=== PATIENT | male | born 1995 | race Caucasian/White ===

== ENCOUNTER 2017-07-10 16:53 | Observation (INO) | payer SELFPAY ==
[~2017-07-10 16:53] MED LIST: DIPRIVAN VIAL ONE; SUPRANE IN ONE; VERSED ONE; XYLOCAINE 2 % (PLAIN) ONE; ZOFRAN INJ 4 MG VIAL ONE
--- NOTE | 2017-07-10 17:17 | RAD ---
Examination: Left knee, two views History: Foreign body, broken needle Findings: There is a linear metallic fragment 1 cm in length in the soft tissues immediately anterior to the lateral tibial plateau. There is no evidence for fracture, bone infection or other abnormalit y. Impression: Metallic foreign body in the soft tissues. Reported By:
[2017-07-10] MEDS ORDERED: XYLOCAINE 1 % (PLAIN) ONE (17:23)
--- NOTE | 2017-07-10 18:16 | RAD ---
Examination: Left knee, two views History: Follow up foreign body Comparison reference earlier today Findings: The linear metallic foreign body is in similar position, considering slight differences in projection. No new abnormality or interval change demonstrated. Impression: No significant change. Persistent linear metallic foreign fragment in the soft tissues an terior to the knee. Reported By:
--- NOTE | 2017-07-10 18:20 | DR.GENAD ---
HPI - PCP Primary Care Physician: nfd - Complaint/Symptoms Chief Complaint Doctors Comments: Patient got a needle puncture wound in the left lateral patella. The needle was broken off. Needle went into the left knee when bending down on the floor. Chief Complaint:: pt was digging with a needle in his ingrown toe nail and left the needle in the floor. he forgot about it and kneeled down and the needle went in his left knee and broke off. - Source History Provided: Patient - Mode of Arrival Mode of Arrival: Ambulatory - Timing Onset of Chief Complaint: 07/10/17 PMH - PMH Past Medical History: No Past Surgical History: Yes Surgical History: Other - Family History History of Family Medical Conditions: No - Social History Does patient currently use any type of tobacco product: Yes Have you used tobacco products in the last 12 months: Yes Type of Tobacco Use: Cigarettes How many years tobacco product used: 4 Does any household member use tobacco: No Alcohol Use: None Do you use any recreational Drugs:: No Lives With: Family Lives Where: Home - infectious screening In the last 2 months have you had wt loss of >10#?: NO Have you had fever, night sweats or hemotysis?: No Have you traveled outside the country in the last 6 months?: No Isolation: Standard ROS - Review of Systems Eyes: No Symptoms Reported ENTM: No Symptoms Reported Respiratoy: No Symptoms Reported Cardiovascular: No Symptoms Reported Gastrointestinal/Abdominal: No Symptoms Reported Genitourinary: No Symptoms Reported Neurological: No Symptoms Reported Musculoskeletal: No Symptoms Reported, Knee (left knee with a piece of a needle imbeded) Integumentary: No Symptoms Reported Hematologic/Lymphatic: No Symptoms Reported Endocrine: No Symptoms Reported Psychiatric: No Symptoms Reported All Other Systems: Reviewed and Negative PE - Vital Signs Vitals: Temperature 98.9 F Pulse Rate 92 Respiratory Rate 16 Blood Pressure 124/84 O2 Sat by Pulse Oximetry 100 - General Limitations: No Limitations General Appearance: Alert, In No Apparent Distress - Head Head Exam: Normal Inspection, Atraumatic - Eyes Eye exam: Normal Appearance, PERRL, EOMI - ENT ENT Exam: Normal Exam External Ear Exam: Normal External Inspection TM/Canal Exam: Bilateral Normal Nose Exam: Normal Nose Exam Mouth Exam: Normal Inspection Throat Exam: Normal Inspection - Neck Neck Exam: Normal Inspection - Chest Chest Inspection: Normal Inspection - Respiratory Respiratory Exam: Normal Lung Sounds Bilat Respiratory Exam: Bilateral Clear to Auscultation - Cardiovascular Cardiovascular Exam: Regular Rate, Normal Rhythm - Abdominal Exam Abdominal Exam: Normal Inspection Abdominal Tenderness: negative: RUQ, RLQ, LUQ, LLQ, Epigastrium, Suprapubic, Diffuse, Mild, Moderate, Severe, Other - Extremities Extremities Exam: Normal Inspection, Other (left knee laterally with a metallic foreign body (needle)) - Back Back Exam: Normal Inspection, Full ROM - Neurologic Neurological Exam: Alert, Oriented X3, CN II-XII Intact - Psychiatric Psychiatric Exam: Normal Affect, Normal Mood - Skin Skin Exam: Warm, Dry, Intact Course - Reevaluation 1st: Unchanged - Consultation Called: 18:25 (Dr Luu agreed to admit) Consultation Comments: Dr Lira reviewed the X ray thought the foreign body was in the knee joint.Recommended to admit for surgery in the AM. 1820 - Education/Counseling Educated On: Treatment, Diagnosis, Needs for Follow Up ROR - XRAY XRAY Interpreted by: Radiologist (Knee: There is a linear metallic fragment 1cm in length in the soft tissue immediately anterior to the laterial platea. There is no evidence for fracture, bone infection or other abnormality.) - Diagnosis Discharge Problem: Acute foreign body of left knee Qualifiers: Encounter type: initial encounter Qualified Code(s): S80.252A - Superficial foreign body, left knee, initial encounter - Discharge Plan Condition: Stable - Follow ups/Referrals Follow ups/Referrals: [facility],None [Primary Care Provider] - 3 days - Instructions
[2017-07-10] MEDS ORDERED: NS 1000 ML 1,000 ML IV SCH (19:00)
[2017-07-10] MEDS ORDERED: VANCOMYCIN 1 GM PREMIX (ADDVANTAGE) 250 ML IV ONE (19:17)
[2017-07-10] MEDS ORDERED: NS 250 ML IV 250 ML IV ONE (19:21)
[2017-07-10] MEDS: VANCOMYCIN HCL 1 GM VIAL 1 GM in D5W 250 ML IV 250 ML IV SCH ×2 (19:32→22:36)
[2017-07-10 22:29] VITALS: BMI 18.9
[2017-07-10 22:54] LABS: BILIRUBIN,URINE NEGATIVE (NEGATIVE); BLOOD/HEMOGLOBIN,URINE NEGATIVE (NEGATIVE); GLUCOSE, URINE NEGATIVE (NEGATIVE); KETONES,URINE NEGATIVE (NEGATIVE); LEUKOCYTE ESTERASE ,URINE NEGATIVE (NEGATIVE); NITRITES,URINE NEGATIVE (NEGATIVE); PROTEIN,URINE 1+ (NEGATIVE); UROBILINOGEN,URINE NORMAL (NORMAL)
[2017-07-10 23:03] LABS: APPEARANCE,URINE SLIGHTLY HAZY (CLEAR); COLOR,URINE YELLOW (YELLOW)
[2017-07-10 23:04] LABS: AMORPHOUS SEDIMENT,UR 1+ /HPF (NEGATIVE); BACTERIA,URINE TRACE /HPF (NEGATIVE); RBC,URINE 0-2 /HPF (NONE SEEN); SQUAMOUS EPITHELIAL CELL,UR FEW /HPF (NEGATIVE)
[2017-07-11] MEDS ORDERED: MORPHINE SULFATE INJ 2 MG INJ IVP PRN (03:31)
[2017-07-11 06:02] LABS: BASOPHILS # (AUTO) 0.1 X10^3/uL (0.0-0.1); BASOPHILS % (AUTO) 0.9 % (0.2-1.0); EOSINOPHILS # (AUTO) 0.4 x10^3/uL (0.0-0.2); EOSINOPHILS % (AUTO) 5.8 % (0.9-2.9); HEMATOCRIT 40.3 % (42.0-54.0); HEMOGLOBIN 14.1 g/dL (13.5-18.0); LYMPHOCYTES # (AUTO) 2.3 X10^3/uL (1.3-2.9); LYMPHOCYTES % (AUTO) 32.7 % (21.0-51.0); MEAN CORPUSCULAR HEMOGLOBIN 31.5 pg (27.0-34.0); MEAN CORPUSCULAR HGB CONC 35.1 g/dL (33.0-35.0); MEAN CORPUSCULAR VOLUME 89.7 fL (80.0-100.0); MEAN PLATELET VOLUME 9.6 fL (7.4-11.0); MONOCYTES # (AUTO) 0.7 x10^3/uL (0.3-0.8); MONOCYTES % (AUTO) 9.9 % (0.0-13.0); NEUTROPHILS # (AUTO) 3.6 x10^3/uL (2.2-4.8); NEUTROPHILS % (AUTO) 50.7 % (42.0-75.0); PLATELET COUNT 219 X10^3/uL (150.0-450.0); RED BLOOD COUNT 4.49 X10^6/uL (4.7-6.0); RED CELL DISTRIBUTION WIDTH 12.9 % (11.6-16.5); WHITE BLOOD COUNT 7.1 X10^3/uL (3.6-10.0)
[2017-07-11 06:09] LABS: ALANINE AMINOTRANSFERASE 25 Units/L (12-78); ALBUMIN 3.3 g/dL (3.4-5.0); ALKALINE PHOSPHATASE 48 Units/L (46-116); ASPARTATE AMINO TRANSFERASE 15 Units/L (15-37); BLOOD UREA NITROGEN 15 mg/dL (7-18); CALCIUM 8.2 mg/dL (8.5-10.1); CARBON DIOXIDE 29.1 mmol/L (21-32); CHLORIDE 105 mmol/L (98-107); COR CA(FOR HYPOALB) 8.8 mg/dL (8.5-10.1); SODIUM 142 mmol/L (136-145); TOTAL PROTEIN 6.5 g/dL (6.4-8.2); eGFR BLACK RACES > 60 (>60); eGFR NON BLACK RACES > 60 (>60)
--- NOTE | 2017-07-11 06:39 | RAD ---
HISTORY: Preop foreign body removal Study: Single-view chest Comparison: 10/25/2012. Findings: Trachea is midline. The heart size is normal. Lungs and pleural spaces are clear. Osseous structures are intact. IMPRESSION: Normal chest. Reported By:
[2017-07-11] MEDS ORDERED: LR 1000 ML IV 1,000 ML IV ONE (07:26)
[2017-07-11] MEDS ORDERED: FENTANYL INJ 100 mcg ONE (07:37)
[2017-07-11] MEDS ORDERED: NS IRRIGATION 1000 ML 1,000 ML with BACITRACIN VIAL 50,000 UNT IR ONE ×2 (08:14)
[2017-07-11] MEDS ORDERED: MARCAINE 0.25% INJ ONE (08:30)
[2017-07-11] MEDS ORDERED: ADRENALINE CHL INJ ONE (08:30)
[2017-07-11] MEDS ORDERED: BACTROBAN OINT ONE (08:33)
[2017-07-11] MEDS ORDERED: NORCO 5/325 MG TAB PO PRN (08:43)
--- NOTE | 2017-07-11 08:43 | DR.CONSULT ---
Consult - Consultation for Day of: Date: 07/11/17 - Allergies Allergies/Adverse Reactions: Allergies Allergy/AdvReac Type Severity Reaction Status Date / Time cefaclor Allergy Verified 07/10/17 16:54 Penicillins Allergy Verified 07/10/17 16:54 ranitidine [From Zantac] Allergy Verified 07/10/17 16:54 - History of Present Illness History of Present Illness: left knee foreign body. seen in ER. admitted and consultation. pt was using his needle for removing denris of the toe nail. he left the needle on the floor and kneeled on it. - Past Surgical History Surgical History: Tonsillectomy - Family History Family Medical History: Diabetes Mellitus, Hypertension - Social History Does patient currently use any type of tobacco product: Yes (Cigarettes) Have you used tobacco products in the last 12 months: No Type of Tobacco Use: Cigarettes How many years tobacco product used: 4 Does any household member use tobacco: Yes Alcohol Use: None Drug Use: None - Medications Home Medications: NK [NK] 07/10/17 [History Confirmed 07/10/17] - Physical Exam Vital Signs: Temperature 97.6 F Pulse Rate [Radial] 61 Pulse Rate 92 Respiratory Rate 20 Blood Pressure [Left Arm] 98/55 Blood Pressure 124/84 O2 Sat by Pulse Oximetry 100 - Plan Plan: left knee foreign body removal. knee scope and debridement if inta articular
[2017-07-11] MEDS ORDERED: REGLAN INJ 10 MG VIAL IVP PRN (08:45)
[2017-07-11] MEDS ORDERED: PHENERGAN INJ 25 MG IVP PRN (08:45)
[2017-07-11] MEDS ORDERED: DILAUDID INJ IVP PRN (08:45)
[2017-07-11] MEDS ORDERED: ZOFRAN INJ 4 MG VIAL IVP PRN (08:45)
[2017-07-11] MEDS ORDERED: BENADRYL INJ 50 MG VIAL IVP PRN (08:45)
--- NOTE | 2017-07-11 09:24 | RAD ---
HISTORY: Postop left knee status post foreign body removal Study: Three views left knee Comparison: Earlier the same day Findings: No evidence for acute cortical disruption or dislocation. The medial and lateral tibiofemoral compar tments appear unremarkable without loss of significant joint space. Radiopaque foreign body has been removed. There is prepatellar soft tissue swelling with a trace effusion. IMPRESSION: No residual foreign body identified. Reported By:
[2017-07-11 13:45] VITALS: BP 100/76
--- NOTE | 2017-07-15 13:44 | OR.GENERIC ---
Post-Op Note Generic - Post-Op Note Operative Report: preoperative diagnosis-LEFT knee foreign body Postoperative diagnosis-LEFT knee foreign body Procedure LEFT knee foreign body removal Date of surgery-07/11/17 Indication. Patient is a 21-year-old male who presented to the emergency room after he got his needle stuck in his LEFT knee. Patient reports he was cleaning his ingrowing toenail with a needle. He LEFT the needle on the floor. He forgot about it. Then when he started to look for T accidentally kneeled on the needle and the 8 got into his LEFT knee. He was seen in the emergency room. And an attempt for retrieval was done. They were not able to retrieve it. And so I was consulted. X-ray shows that the possibility of the knee and being intra-articular. Certainly treatment discussions were done with him. The possibility of aarthrotomyto retrieve it was discussed with him. And it was told that if there is an intra-articular involvement will have to 200 and arthroscopic washout or an arthrotomy. The need for chronic medication was also discussed with him. He understood and wanted lysis same. Preoperative-patient was seen in the preoperative holding area. He was marked. Patient brought the proper antibiotic. He was met with theanesthetist. Consent was again revisited. Pre-and post operative course was discussed with him. Complications including but not limited to infection, septic arthritis, stiffness of the knee, septicemia, anesthesia complications, need for further procedure, inability to remove the foreign body was discussed with him. He understood and mobilized the same. Procedure-patient was brought to the operating room. Patient was placed supine on the operating table. Patient was put under general anesthesia. Patient was intubated. Tourniquet is placed on the LEFT thigh. LEFT leg was prepped and draped. The debridement of the skin around the incision for retrieval was done. Tourniquet does not never inflated throughout the procedure. The foreign body was found to be in the subcutis tissue. The surrounding tissue was divided. At this time through a medial portal the knee was inflated with the spinal needle. No leakage through the lateral incision was noted. Sedimentation rate was decided that it was not intra-articular. Thorough irrigation was done. Wound was closed in layers. Postoperative-patient was woken up from anesthesia. Successful extubation was done. Patient was afebrile and was stable vitals when he was shifted to the PACU. He was updated about the procedure. No family waspresent to update them. Patient was sent home with instructions for follow-up. Medications were given to him.
== END 2017-07-11 10:35 | disposition left against medical advice (07) ==
LOC: ER 17:09 → MED/SURG 18:37
PROVIDERS: ADMIT Obstetrics & Gynecology Obstetrics; ATTEND Obstetrics & Gynecology Obstetrics
PROC: 0JCP0ZZ Extirpation of Matter from Left Lower Leg Subcutaneous Tissue and Fascia, Open Approach (ICD-10-PCS; principal; 2017-07-11 07:30)
DX: S81.042A Puncture wound with foreign body, left knee, initial encounter (principal); W18.39XA Other fall on same level, initial encounter; Y92.89 Other specified places as the place of occurrence of the external cause; R94.31 Abnormal electrocardiogram [ECG] [EKG]; B95.7 Other staphylococcus as the cause of diseases classified elsewhere
CPT/HCPCS: 36415; 71045; 73560; 73564; 76000; 80053; 81001; 85025; 87070; 87075; 87077; 87186; 87205; 93005; 93010; 94760; 96365; 96374; A4216; A4222; S0020; G0378; J0170; J2001; J2250; J2270; J2405; J3010; J3370; J3490; J7120